=== PATIENT | female | born 1960 | race Caucasian/White ===

== ENCOUNTER 2022-12-20 09:27 | Observation (INO) ==
--- NOTE | 2022-12-20 09:39 | Emergency Department Note ---
HPI General Chief complaint: Nausea/Vomiting/Diarrhea Stated complaint: stomach and back pain Time Seen by Provider: 12/20/22 09:39 Source: patient Mode of arrival: ambulatory History of Present Illness HPI Narrative: Narrative: Patient is a 62-year-old female with a history of hypertension who presents to the emergency department due to abdominal pain. She states that started this morning and has been constant since then. She states that it started after drinking coffee. She states that it is in the right upper part of the abdomen and radiates to the back. She states that it is an achy pain, and denies palliative or provocative factors at this time. She also endorses nausea, vomiting, and diarrhea. She states that the diarrhea is chronic, but the nausea and vomiting are not. She denies any other concerns at this time. Related Data Home Medications Medication Instructions Recorded Confirmed cholestyramine (with sugar) 4 gram 4 g PO BID 03/10/21 12/20/22 oral powder Previous Rx's Medication Instructions Recorded omeprazole 20 mg capsule,delayed 20 mg PO BID stomach upset #180 07/20/22 release caps fluticasone 250 mcg-salmeterol 50 1 inh inhalation Q12H PRN asthma 10/26/22 mcg/dose blistr powdr for #60 ea inhalation (Advair Diskus) hydrochlorothiazide 25 mg tablet 25 mg PO QAM #90 tabs 11/17/22 albuterol sulfate 90 mcg/actuation 1 puff inhalation Q4H PRN 11/25/22 aerosol inhaler (ProAir HFA) shortness of breath #6.7 grams Allergies Allergy/AdvReac Type Severity Reaction Status Date / Time hydrocodone AdvReac Unknown Nausea Verified 09/14/22 11:31 Review of Systems ROS ROS Narrative: Narrative: Constitutional: Denies fever or weakness Eyes: Denies eye pain or vision change ENT ED: Denies throat pain or rhinorrhea Cardiovascular: Denies chest pain, dyspnea on exertion, orthopnea or edema Respiratory: Denies shortness of breath or cough Gastrointestinal: Reports abdominal pain, nausea, vomiting and diarrhea; Denies constipation, hematochezia or melena Musculoskeletal: Denies back pain or myalgia Integumentary: Denies rash or lesions Neurological: Denies headache, weakness, numbness, confusion, abnormal gait or dizziness [facility] Narrative Patient History Narrative: Narrative: Medical/Surgical/Family History All Active Problems (Updated 12/20/22 @ 15:10 by Chris Ulloa MD) Chronic asthma (Acute) Cholelithiasis and cholecystitis without obstruction (Acute) Congestion of upper respiratory tract (Acute) Cough (Acute) HTN (hypertension) (Acute) Medicare annual wellness visit, initial (Acute) Fracture of left wrist (Acute) Fall (Acute) Dysphagia (Chronic) GERD (gastroesophageal reflux disease) (Chronic) Chronic diarrhea (Chronic) Chronic cough (Chronic) Wellness examination (Chronic) Medical History Chronic cough 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 Stewart Rt 2009 left 2006 H/O tubal ligation at 23 years old History of colonoscopy (12/14/16) History of hysteroscopy (08/03/13) Family History Other No pertinent family history Social History Smoking Status: Never smoker Alcohol Intake Frequency: does not drink Substance Use: does not use Exam Narrative Narrative: Narrative: General General appearance: Present alert and in no apparent distress; Absent anxious, appears intoxicated or sleepy Head Head: Present atraumatic and normocephalic Eye Eye: Present PERRL, EOMI and visual vázquez intact; Absent scleral icterus or nystagmus ENT ENT: Present mucous membranes moist; Absent nasal congestion Neck Neck: Present full ROM; Absent tenderness Chest Chest: Present normal inspection and symmetric chest wall rise; Absent tenderness Respiratory Respiratory: Present normal lung sounds bilaterally; Absent respiratory distress or accessory muscle use Cardiovascular Cardiovascular: Present regular rate, normal rhythm and normal heart sounds Adbominal Abdominal: Present soft, tenderness (RUQ), normal bowel sounds and Chavira's si gn; Absent distention, guarding, rebound, rigidity, Rovsing's sign or tenderness at McBurney's Point Extremities Extremities: Present normal inspection and full ROM Back Back: Present normal inspection and full ROM Neurological Neurological: Present alert and oriented X3 Psychiatric Psychiatric: Present normal affect and normal mood Skin Skin: Present warm (WNL), dry and normal color Course Vital Signs Vital signs: Vital Signs Temperature 97.2 F 12/20/22 09:31 Pulse Rate 75 12/20/22 09:31 Respiratory Rate 18 12/20/22 09:31 Blood Pressure 174/88 12/20/22 09:31 Pulse Oximetry (%) 97 12/20/22 09:31 Oxygen Delivery Method Room Air 12/20/22 09:31 Temperature 98.1 F 12/20/22 13:13 Pulse Rate 72 12/20/22 13:13 Respiratory Rate 16 12/20/22 13:13 Blood Pressure 172/86 12/20/22 13:13 Pulse Oximetry (%) 100 12/20/22 13:13 Oxygen Delivery Method Room Air 12/20/22 13:13 MDM MDM Narrative Medical decision making narrative: Narrative: Patient is a 62-year-old female who presents to the emergency department due to abdominal pain. Differential diagnoses include cholecystitis, cholelithiasis, pancreatitis, and gastroenteritis. I did perform a bedside ultrasound which demonstrated thickened gallbladder wall, pericholecystic fluid, and echogenic material in the dependent portion of the gallbladder. For this reason a comprehensive ultrasound was ordered. This demonstrated the same thing, but did demonstrate stones in the gallbladder neck as well. Patient's labs are reassuring overall, but due to concern for cholecystitis I spoke to Dr. Ulloa who agreed to see and admit patient. Lab Data 12/20/22 09:50 Labs: Lab Results 12/20/22 12/20/22 12/20/22 Range/Units 09:50 09:50 09:56 WBC 8.3 (4.5-11.0) K/mcL RBC 5.08 (3.59-5.38) M/mcL Hgb 14.5 (11.2-15.7) g/dL Hct 44.7 (34.1-44.9) % POC Hct 44.0 (36-48) MCV 88.0 (80.0-100.0) fL MCH 28.5 (26.0-34.0) pg MCHC 32.4 (31.0-36.0) g/dL RDW 12.8 (11.5-14.5) % Plt Count 349 (140-440) K/mcL MPV 10.7 (8.8-12.5) fL Immature Gran % (Auto) 0.1 (0.0-0.5) % Neut % (Auto) 69.6 (38.0-78.0) % Lymph % (Auto) 22.6 (15.5-49.0) % Tate % (Auto) 5.0 (1.0-12.0) % Eos % (Auto) 1.9 (0.0-7.0) % Baso % (Auto) 0.8 (0.0-2.0) % Lymph # (Auto) 1.88 (1.50-4.80) K/mcL Tate # (Auto) 0.42 (0.10-0.90) K/mcL Eos # (Auto) 0.16 (0.00-0.70) K/mcL Baso # (Auto) 0.07 (0.00-0.30) K/mcL Immature Gran # 0.01 (0.00-0.05) K/mcl Absolute Neutrophils 5.79 (1.80-8.00) K/mcL POC Sodium 139 (133-145) POC Potassium 4.0 (3.3-5.1) POC Chloride 104 (96-108) POC Total CO2 29.0 (22-30) POC BUN 15 (6-20) POC Creatinine 0.8 (0.6-1.2) POC Glucose 116 H (70-105) POC WB Ioniz Calcium 1.03 L (1.16-1.32) Total Bilirubin 0.4 (0.1-1.0) mg/dL Direct Bilirubin < 0.2 (0-0.3) mg/dL AST 22 (<32) U/L ALT 22 (<40) U/L Alkaline Phosphatase 132 H (39-117) U/L Total Protein 7.0 (5.9-8.4) gm/dL Albumin 4.1 (3.2-5.2) gm/dL Globulin 2.9 (2.2-3.7) gm/dL Lipase 23 (7-60) U/L Urine Color Urine Appearance (Clear) Urine pH (5.0-9.0) Ur Specific Dupo (1.000-1.035) Urine Protein (Negative) mg/dL Urine Glucose (UA) (Negative) mg/dL Urine Ketones (Negative) mg/dL Urine Occult Blood (Negative) gerson/mcL Urine Nitrate (Negative) Urine Bilirubin (Negative) mg/dL Urine Urobilinogen mg/dL Ur Leukocyte Esterase (Negative) /uL Ur Culture Indicated? 12/20/22 Range/Units 12:41 WBC (4.5-11.0) K/mcL RBC (3.59-5.38) M/mcL Hgb (11.2-15.7) g/dL Hct (34.1-44.9) % POC Hct (36-48) MCV (80.0-100.0) fL MCH (26.0-34.0) pg MCHC (31.0-36.0) g/dL RDW (11.5-14.5) % Plt Count (140-440) K/mcL MPV (8.8-12.5) fL Immature Gran % (Auto) (0.0-0.5) % Neut % (Auto) (38.0-78.0) % Lymph % (Auto) (15.5-49.0) % Tate % (Auto) (1.0-12.0) % Eos % (Auto) (0.0-7.0) % Baso % (Auto) (0.0-2.0) % Lymph # (Auto) (1.50-4.80) K/mcL Tate # (Auto) (0.10-0.90) K/mcL Eos # (Auto) (0.00-0.70) K/mcL Baso # (Auto) (0.00-0.30) K/mcL Immature Gran # (0.00-0.05) K/mcl Absolute Neutrophils (1.80-8.00) K/mcL POC Sodium (133-145) POC Potassium (3.3-5.1) POC Chloride (96-108) POC Total CO2 (22-30) POC BUN (6-20) POC Creatinine (0.6-1.2) POC Glucose (70-105) POC WB Ioniz Calcium (1.16-1.32) Total Bilirubin (0.1-1.0) mg/dL Direct Bilirubin (0-0.3) mg/dL AST (<32) U/L ALT (<40) U/L Alkaline Phosphatase (39-117) U/L Total Protein (5.9-8.4) gm/dL Albumin (3.2-5.2) gm/dL Globulin (2.2-3.7) gm/dL Lipase (7-60) U/L Urine Color Lt. yellow Urine Appearance Clear (Clear) Urine pH 8.0 (5.0-9.0) Ur Specific Dupo 1.015 (1.000-1.035) Urine Protein Negative (Negative) mg/dL Urine Glucose (UA) Negative (Negative) mg/dL Urine Ketones 40 A (Negative) mg/dL Urine Occult Blood Negative (Negative) gerson/mcL Urine Nitrate Negative (Negative) Urine Bilirubin Negative (Negative) mg/dL Urine Urobilinogen Normal mg/dL Ur Leukocyte Esterase Negative (Negative) /uL Ur Culture Indicated? No EKG Data EKG #1: EKG attestation: Yes I reviewed and interpreted this EKG. EKG results narrative: Normal sinus rhythm with a rate of 65, normal axis, NM 71, QRS of 83, QTc of 494, appearance of T wave flattening throughout, although this is difficult to interpret due to poor quality EKG, and absence of ST elevation or depression. Discharge Plan Patient/Caregiver Discharge Instructions Pt seen by OVEN OPERATOR/PA only: No Clinical Impression: Cholecystitis Patient Disposition: Xfer As Inpt ([facility]) Discharge Date/Time: 12/20/22 13:11
[2022-12-20 10:02] LABS: POC Calcium, Ionized 1.03 (1.16-1.32); POC Creatinine 0.8 (0.6-1.2)
[2022-12-20] MEDS ORDERED: ONDANSETRON 4 MG/2 ML VIAL IV ONE (10:19)
[2022-12-20 10:20] LABS: Basophils # (Auto) 0.07 K/mcL (0.00-0.30); Basophils % (Auto) 0.8 % (0.0-2.0); Eosinophils # (Auto) 0.16 K/mcL (0.00-0.70); Eosinophils % (Auto) 1.9 % (0.0-7.0); Hematocrit 44.7 % (34.1-44.9); Hemoglobin 14.5 g/dL (11.2-15.7); Lymphocytes # (Auto) 1.88 K/mcL (1.50-4.80); Lymphocytes % (Auto) 22.6 % (15.5-49.0); Mean Corpuscular HGB Conc 32.4 g/dL (31.0-36.0); Mean Platelet Volume 10.7 fL (8.8-12.5); Monocytes # (Auto) 0.42 K/mcL (0.10-0.90); Neutrophils % (Auto) 69.6 % (38.0-78.0); Platelet Count 349 K/mcL (140-440); RBC 5.08 M/mcL (3.59-5.38); Red Cell Distribution Width 12.8 % (11.5-14.5); WBC 8.3 K/mcL (4.5-11.0)
[2022-12-20] MEDS ORDERED: morphine 4 MG/ML VIAL IV ONE (10:39)
[2022-12-20 10:40] LABS: ALT/SGPT 22 U/L (<40); AST/SGOT 22 U/L (<32); Albumin 4.1 gm/dL (3.2-5.2); Alkaline Phosphatase 132 U/L (39-117); Bilirubin,Direct < 0.2 mg/dL (0-0.3); Bilirubin,Total 0.4 mg/dL (0.1-1.0); Globulin 2.9 gm/dL (2.2-3.7)
[2022-12-20] MEDS ORDERED: morphine 2 MG/ML VIAL IV PRN (12:30)
[2022-12-20 13:12] LABS: Appearance,Urine CLEAR (Clear); Bilirubin,Urine NEGATIVE (Negative); Color,Urine LT. YELLOW; Culture Indicated,Urine No; Glucose,Urine (UA) NEGATIVE (Negative); Ketones,Urine 40 mg/dL (Negative); Leukocyte Esterase,Urine NEGATIVE /uL (Negative); Nitrate,Urine NEGATIVE (Negative); Protein,Urine NEGATIVE (Negative); Specific Gravity,Urine 1.015 (1.000-1.035); Urine Blood NEGATIVE ery/mcL (Negative); Urobilinogen,Urine Normal
[2022-12-20] MEDS: 0.9 % SODIUM CHLORIDE 1,000 ML IV SCH (13:42)
[2022-12-20] MEDS: ONDANSETRON 4 MG/2 ML VIAL IV PRN ×2 (13:43→18:11)
[2022-12-20] MEDS ORDERED: PROMETHAZINE 25 MG/ML VIAL IV PRN (15:01)
[2022-12-20] MEDS ORDERED: ALBUTEROL SULFATE 60 PUFF INHALER INH PRN (15:05)
[2022-12-20] MEDS ORDERED: FLUTICASONE/SALMETEROL 250/50 INHALER #14 INH PRN (15:05)
--- NOTE | 2022-12-20 15:11 | General Surg History&Physical ---
HPI History of Present Illness Patient information: Note initiated : 12/20/22 at 3:05 pm Service Date, if different from initiated Date: [] Patient: Екатерина Farooq a 62 y/o F admitted on 12/20/22 for stomach and back pain. Chief Complaint: [] Chief complaint: Acute cholecystitis with cholelithiasis History of present illness: Ms. Farooq is a 62 year old F with onset of epigastric and right upper quadrant pain about 1 AM. This gradually increased in intensity and recurred more severely about 5 AM. This was followed by radiation through to her back with associated nausea and vomiting. She had persistent gagging and was finally seen in the emergency room after 8 AM. On evaluation she was noted to have epigastric and right upper quadrant tenderness. Abdominal ultrasound shows gallstones with stones impacted in the neck of the gallbladder and mild pericholecystic edema. Patient is admitted with cholecystitis with cholelithiasis. She will be treated with antibiotics and will have cholecystectomy in the a.m. Review of Systems All systems: reviewed and no additional remarkable complaints except as stated Respiratory Respiratory: Present wheezing PFSH PFSH All Active Problems (Updated 12/20/22 @ 15:10 by Chris Ulloa MD) Chronic asthma (Acute) Cholelithiasis and cholecystitis without obstruction (Acute) Congestion of upper respiratory tract (Acute) Cough (Acute) HTN (hypertension) (Acute) Medicare annual wellness visit, initial (Acute) Fracture of left wrist (Acute) Fall (Acute) Dysphagia (Chronic) GERD (gastroesophageal reflux disease) (Chronic) Chronic diarrhea (Chronic) Chronic cough (Chronic) Wellness examination (Chronic) Medical History Chronic cough Occupational asthma from working in a gustavo environment at [employer] Patient is on SS disability, no longer working Chronic diarrhea Congestion of upper respiratory tract Cough Dysphagia GERD (gastroesophageal reflux disease) HTN (hypertension) Medicare annual wellness visit, initial [place] neuroma rt , 2009 No pertinent past medical history Wellness examination Surgical History H/O knee surgery Dr. Stewart Rt 2009 left 2006 H/O tubal ligation at 23 years old History of colonoscopy (12/14/16) History of hysteroscopy (08/03/13) Family History Other No pertinent family history Social History smoking status: Never smoker alcohol intake frequency: does not drink substance use type: does not use MEDS/ALLERGIES Home Medications and Allergies Home Medications Medication Instructions Recorded Confirmed Type cholestyramine (with sugar) 4 gram 4 g PO BID 03/10/21 12/20/22 History oral powder omeprazole 20 mg capsule,delayed 20 mg PO BID stomach upset #180 07/20/22 12/20/22 Rx release caps fluticasone 250 mcg-salmeterol 50 1 inh inhalation Q12H PRN asthma 10/26/22 12/20/22 Rx mcg/dose blistr powdr for #60 ea inhalation (Advair Diskus) hydrochlorothiazide 25 mg tablet 25 mg PO QAM #90 tabs 11/17/22 12/20/22 Rx albuterol sulfate 90 mcg/actuation 1 puff inhalation Q4H PRN 11/25/22 12/20/22 Rx aerosol inhaler (ProAir HFA) shortness of breath #6.7 grams Allergies Allergy/AdvReac Type Severity Reaction Status Date / Time hydrocodone AdvReac Unknown Nausea Verified 09/14/22 11:31 Physical Examination Vital Signs Vital signs: Temp Pulse Resp BP Pulse Ox O2 Del Method 98.1 F 72 16 172/86 100 Room Air 12/20/22 13:13 12/20/22 13:13 12/20/22 13:13 12/20/22 13:13 12/20/22 13:13 12/20/22 13:13 General physical appearance General physical exam: well developed, well nourished, no distress and moderate pain Eyes Eye exam: PERRL and normal ocular movement ENT ENT exam: normal mucosa and no congestion Head Head exam IM: Present atraumatic, normal inspection and normocephalic Neck Neck exam: no masses, no bruits, trachea midline, no lymphadenopathy and no venous distension Cardiovascular Cardiovascular exam IM: Present normal rate and rhythm, JVD, RRR, +S1 and +S2; Absent gallop Respiratory Respiratory exam: normal expansion, normal respiratory effort and clear to auscultation Abdomen Abdomen: Present tender (Epigastrium and right upper quadrant) and bowel sounds (present) Integumentary Integumentary: Present no rash, no growths and no abnormal pigmentation Neurologic Neurologic: Present normal coordination and normal sensation Musculoskeletal Musculoskeletal: Present normal gait and normal posture Psychiatric Psychiatric: Present oriented to time, oriented to person, oriented to place, speech is normal and memory intact Results Labs 12/20/22 09:50 Labs: Abnormal lab results 12/20/22 12/20/22 12/20/22 Range/Units 09:50 09:56 12:41 POC Glucose 116 H (70-105) POC WB Ioniz Calcium 1.03 L (1.16-1.32) Alkaline Phosphatase 132 H (39-117) U/L Urine Ketones 40 A (Negative) mg/dL Diabetes panel 12/20/22 Range/Units 09:50 AST 22 (<32) U/L ALT 22 (<40) U/L Alkaline Phosphatase 132 H (39-117) U/L Total Protein 7.0 (5.9-8.4) gm/dL Albumin 4.1 (3.2-5.2) gm/dL Calcium panel 12/20/22 Range/Units 09:50 Albumin 4.1 (3.2-5.2) gm/dL Adrenal panel 12/20/22 Range/Units 09:50 Total Bilirubin 0.4 (0.1-1.0) mg/dL AST 22 (<32) U/L ALT 22 (<40) U/L Alkaline Phosphatase 132 H (39-117) U/L Total Protein 7.0 (5.9-8.4) gm/dL Albumin 4.1 (3.2-5.2) gm/dL All other labs normal. A/P Assessment and plan (1) Cholelithiasis and cholecystitis without obstruction: Status: Acute (2) HTN (hypertension): Status: Acute (3) GERD (gastroesophageal reflux disease): Status: Chronic Qualifiers: Esophagitis presence: without esophagitis Qualified Code(s): K21.9 - Gastro-esophageal reflux disease without esophagitis; K21.9 - Gastro-esophageal reflux disease without esophagitis; K21.9 - Gastro-esophageal reflux disease without esophagitis (4) Chronic diarrhea: Status: Chronic (5) Chronic asthma: Status: Acute Plan Clear liquid diet N.p.o. after midnight Zosyn 3.375 g IV every 6 hours Consent for laparoscopic cholecystectomy to be performed tomorrow Pantoprazole 40 mg every 12 hours IV Baseline chest x-ray Continue inhalers Sepsis Sepsis Identified: No Time Spent With Patient Time: Total time spent is greater than 50% in coordination of care (as documented) at patient's floor/unit and/or counseling patient:
--- NOTE | 2022-12-20 15:45 | XRay Report ---
CLINICAL INFORMATION: Preop COMPARISON: 01/31/2019 TECHNIQUE: Portable FINDINGS: The heart size, mediastinum and pulmonary vessels are unremarkable. Moderate bibasilar atelectasis noted.. There are no effusions. The bones and soft tissues are within normal limits. IMPRESSION: Minor bibasilar atelectasis. Interpreted and Authenticated by: Brady Gold 12/20/22
--- NOTE | 2022-12-20 15:51 | Ultrasound Report ---
CLINICAL INFORMATION: Right upper quadrant pain COMPARISON: None. FINDINGS: Gallbladder wall is moderately thickened (5 mm) there are multiple stones in the gallbladder ranging up to 3 cm. Focal pain is seen over the gallbladder is supportive of cholecystitis. The common bile duct is normal at 4 mm. Liver and pancreas are normal in size and echotexture. No free fluid. IMPRESSION: Cholecystitis Interpreted and Authenticated by: Brady Gold 12/20/22
[2022-12-20] MEDS: HYDROCHLOROTHIAZIDE 25 MG TABLET PO SCH (16:04)
[2022-12-20] MEDS: PIPERACILLIN SODIUM/TAZOBACTAM 3.375 GM in DEXTROSE 5% IN WATER 50 ML IV SCH ×2 (16:05→20:14)
[2022-12-20] MEDS: PANTOPRAZOLE 40 MG VIAL IV SCH (17:10)
[2022-12-20] MEDS: HYDROmorphone 1 MG/ML SYRINGE IV PRN (18:11)
[2022-12-21] MEDS: PIPERACILLIN SODIUM/TAZOBACTAM 3.375 GM in DEXTROSE 5% IN WATER 50 ML IV SCH ×5 (00:08→23:49)
[2022-12-21] MEDS: 0.9 % SODIUM CHLORIDE 1,000 ML IV SCH ×4 (00:08→17:16)
[2022-12-21 06:45] LABS: Basophils # (Auto) 0.06 K/mcL (0.00-0.30); Basophils % (Auto) 0.7 % (0.0-2.0); Eosinophils # (Auto) 0.18 K/mcL (0.00-0.70); Hematocrit 42.3 % (34.1-44.9); Hemoglobin 13.3 g/dL (11.2-15.7); Lymphocytes # (Auto) 1.94 K/mcL (1.50-4.80); Lymphocytes % (Auto) 21.8 % (15.5-49.0); Mean Cell Volume 89.2 fL (80.0-100.0); Mean Corpuscular HGB Conc 31.4 g/dL (31.0-36.0); Mean Platelet Volume 10.7 fL (8.8-12.5); Monocytes % (Auto) 6.7 % (1.0-12.0); Neutrophils % (Auto) 68.6 % (38.0-78.0); Platelet Count 332 K/mcL (140-440); RBC 4.74 M/mcL (3.59-5.38); WBC 8.9 K/mcL (4.5-11.0)
[2022-12-21] MEDS: PANTOPRAZOLE 40 MG VIAL IV SCH ×2 (07:00→16:59)
[2022-12-21 07:15] LABS: ALT/SGPT 22 U/L (<40); AST/SGOT 24 U/L (<32); Albumin 3.7 gm/dL (3.2-5.2); Albumin/Globulin Ratio 1.4 (1.0-2.3); Alkaline Phosphatase 129 U/L (39-117); Bilirubin,Direct < 0.2 mg/dL (0-0.3); Bilirubin,Total 0.7 mg/dL (0.1-1.0); Blood Urea Nitrogen 6 mg/dL (8-23); Calcium 8.4 mg/dL (8.6-10.4); Carbon Dioxide 27 mmol/L (22-30); Chloride 102 mmol/L (96-108); Globulin 2.6 gm/dL (2.2-3.7); Glomerular Filtration Rate 78; Glucose 97 mg/dL (70-105); Lactate Dehydrogenase 186 U/L (135-225); Phosphorous 3.4 mg/dL (2.5-4.5); Triglycerides 133 mg/dL (<150); Uric Acid 3.4 mg/dL (2.5-8.0)
--- NOTE | 2022-12-21 08:04 | EKG ---
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 Measurements Intervals [place] Rate: 65 P: 18 HI: 71 QRS: 21 QRSD: 83 T: 40 QT: 474 QTc: 494 Interpretive Statements Irregular rhythm, atrial fibrillation vs. sinus arrythmia Low voltage, precordial leads Nonspecific T abnormalities, inferior leads Borderline prolonged QT interval Electronically Signed On 12-21-2022 8:04:18 PST by Brady Dsouza M.D. /store/M0/[id number].pdf
[2022-12-21] MEDS: HYDROCHLOROTHIAZIDE 25 MG TABLET PO SCH (08:21)
[2022-12-21] MEDS: HYDROmorphone 1 MG/ML SYRINGE IV PRN ×3 (08:25→23:58)
[2022-12-21] MEDS: ONDANSETRON 4 MG/2 ML VIAL IV PRN ×2 (08:35→19:33)
[2022-12-21] MEDS: POTASSIUM CHLORIDE 40 MEQ in DEXTROSE 5% IN WATER 500 ML IV SCH ×2 (09:06→16:54)
[2022-12-21] MEDS ORDERED: ROCURONIUM 10 MG/ML ML IV ONE (13:02)
[2022-12-21] MEDS ORDERED: PROPOFOL 200 MG/20 ML VIAL IV ONE (13:02)
[2022-12-21] MEDS ORDERED: HYDROmorphone 1 MG/ML SYRINGE ONE (13:02)
[2022-12-21] MEDS ORDERED: ONDANSETRON 4 MG/2 ML VIAL ONE (13:02)
[2022-12-21] MEDS ORDERED: SUGAMMADEX SODIUM 200 MG/2 ML VIAL IV ONE (13:02)
[2022-12-21] MEDS ORDERED: LIDOCAINE HCL/PF 100 MG/5 ML SYRINGE IV ONE (13:02)
[2022-12-21] MEDS ORDERED: DEXAMETHASONE 4 MG/ML VIAL ONE (13:02)
[2022-12-21] MEDS ORDERED: fentaNYL 100 MCG/2 ML VIAL IV ONE (13:02)
[2022-12-21] MEDS ORDERED: NALOXONE HCL 0.4 MG/ML VIAL IV PRN (13:39)
[2022-12-21] MEDS ORDERED: METHOCARBAMOL 1,000 MG/10 ML VIAL IV PRN (13:39)
[2022-12-21] MEDS ORDERED: ACETAMINOPHEN 1,000 MG/100 ML BAG IV ONE (13:39)
[2022-12-21] MEDS ORDERED: IPRATROPIUM/ALBUTEROL 3 ML AMPUL.NEB NEB PRN (13:39)
[2022-12-21] MEDS ORDERED: PROMETHAZINE 25 MG/ML VIAL IV PRN (13:39)
[2022-12-21] MEDS ORDERED: LABETALOL 5 MG/ML ML IV PRN (13:39)
[2022-12-21] MEDS ORDERED: HYDROmorphone 0.5 MG/0.5 ML SYRINGE IV PRN (13:39)
[2022-12-21] MEDS ORDERED: LACTATED RINGERS 1,000 ML IV SCH (13:45)
--- NOTE | 2022-12-21 13:49 | Brief Operative Note ---
Brief Operative Note Date of procedure: 12/21/22 Pre-op diagnosis: cholelithiasis with cholecystitis Post-op diagnosis: other (cholelithiasis with cholecystitis) Procedure: laparoscopic cholecystectomy Grafts/Implants: No Anesthesia: GETA Findings: acute inflammation of gallbladder with gallstones Complications: none Surgeon: Chris Ulloa Estimated blood loss (cc): 10 Specimens Removed/Pathology: other (gallbladder) Condition: stable Disposition: PACU
[2022-12-21] MEDS: fentaNYL 100 MCG/2 ML VIAL IV PRN ×4 (14:09→14:25)
[2022-12-21] MEDS: 0.9 % SODIUM CHLORIDE 10 ML SYRINGE IV SCH ×2 (15:15→22:00)
[2022-12-22] MEDS: HYDROmorphone 1 MG/ML SYRINGE IV PRN (04:14)
[2022-12-22] MEDS: PIPERACILLIN SODIUM/TAZOBACTAM 3.375 GM in DEXTROSE 5% IN WATER 50 ML IV SCH ×2 (06:26→13:15)
[2022-12-22] MEDS: 0.9 % SODIUM CHLORIDE 10 ML SYRINGE IV SCH ×2 (06:27→13:24)
[2022-12-22 07:26] LABS: Basophils # (Auto) 0.02 K/mcL (0.00-0.30); Basophils % (Auto) 0.2 % (0.0-2.0); Eosinophils # (Auto) 0 K/mcL (0.00-0.70); Eosinophils % (Auto) 0 % (0.0-7.0); Hematocrit 39.7 % (34.1-44.9); Hemoglobin 12.4 g/dL (11.2-15.7); Lymphocytes # (Auto) 1.45 K/mcL (1.50-4.80); Lymphocytes % (Auto) 14.8 % (15.5-49.0); Mean Cell Volume 90.8 fL (80.0-100.0); Mean Corpuscular HGB Conc 31.2 g/dL (31.0-36.0); Mean Platelet Volume 10.7 fL (8.8-12.5); Monocytes # (Auto) 0.43 K/mcL (0.10-0.90); Monocytes % (Auto) 4.4 % (1.0-12.0); Neutrophils % (Auto) 80.3 % (38.0-78.0); Platelet Count 337 K/mcL (140-440); RBC 4.37 M/mcL (3.59-5.38); WBC 9.8 K/mcL (4.5-11.0)
--- NOTE | 2022-12-22 07:59 | Operative Note ---
DATE OF OPERATION: 12/20/2022 DATE OF PROCEDURE: 12/20/2022 PREOPERATIVE DIAGNOSIS: Cholelithiasis with cholecystitis. POSTOPERATIVE DIAGNOSIS: Cholelithiasis with cholecystitis. PROCEDURE: Laparoscopic cholecystectomy. SURGEON: Chris Ulloa M.D. FINDINGS: Acute inflammation of gallbladder with gallstones. DESCRIPTION OF PROCEDURE: Under general anesthesia, the patient's abdomen was prepped and draped in a sterile field. Supraumbilical incision was made. Veress needle was inserted uneventfully. Abdomen was insufflated with 2.5 liters of CO2. A 12 mm port was placed uneventfully. Laparoscope was placed. Under videoscopic guidance, a 12 mm port and two 5 mm ports were placed in the right subcostal region. The gallbladder was decompressed because it was acutely inflamed and tightly dilated. The bile was totally clear, compatible with a chronic obstruction. The gallbladder was then repositioned. Cystic duct was dissected and followed back to the gallbladder. Cystic artery was dissected and followed onto the wall of the gallbladder. Cystic duct was clipped with 5 clips and divided. Cystic artery was clipped with four clips and divided. The gallbladder was then from the hepatic bed using blunt dissection. Cautery was not needed. The bed had slight oozing, so this was controlled with electrocautery. Irrigation was carried out. The gallbladder was placed in an Endopouch and retrieved. Inspection of the bed revealed no further bleeding. There was no bile leak. CO2 was allowed to escape from the abdomen and the ports were removed. The fascia at the umbilicus was closed with interrupted 0 Vicryl. Skin incisions were closed with manjula. The patient tolerated the procedure well. Tegaderm dressings were placed. She was awakened, transferred to a bed, and taken to the postanesthetic care unit in satisfactory condition. LCS:billy Job ID: [id number] Doc ID: [id number] Chris Ulloa M.D.
[2022-12-22] MEDS: HYDROCHLOROTHIAZIDE 25 MG TABLET PO SCH (08:00)
[2022-12-22] MEDS: 0.9 % SODIUM CHLORIDE 1,000 ML IV SCH ×2 (08:00→15:32)
[2022-12-22] MEDS: PANTOPRAZOLE 40 MG VIAL IV SCH (08:08)
[2022-12-22 08:16] LABS: ALT/SGPT 47 U/L (<40); AST/SGOT 55 U/L (<32); Albumin 3.5 gm/dL (3.2-5.2); Albumin/Globulin Ratio 1.3 (1.0-2.3); Alkaline Phosphatase 142 U/L (39-117); Bilirubin,Direct < 0.2 mg/dL (0-0.3); Bilirubin,Total 0.5 mg/dL (0.1-1.0); Blood Urea Nitrogen 6 mg/dL (8-23); Calcium 8.4 mg/dL (8.6-10.4); Carbon Dioxide 27 mmol/L (22-30); Chloride 102 mmol/L (96-108); Globulin 2.7 gm/dL (2.2-3.7); Glomerular Filtration Rate 91; Glucose 107 mg/dL (70-105); Lactate Dehydrogenase 219 U/L (135-225); Phosphorous 3.6 mg/dL (2.5-4.5); Triglycerides 104 mg/dL (<150); Uric Acid 2.6 mg/dL (2.5-8.0)
[2022-12-22] MEDS: oxyCODONE/APAP 5/325MG TABLET PO PRN ×2 (10:44→15:07)
--- NOTE | 2022-12-22 14:28 | Discharge Summary ---
Discharge Provider Provider IMPORTANT FOLLOW-UP INFORMATION FOR PCP: Patient information: Note initiated : 12/22/22 at 2:23 pm Service Date, if different from initiated Date: [] Patient: Екатерина Farooq 62 y/o F admitted on 12/20/22 for stomach and back pain. Chief Complaint: [] Date of admission: 12/20/22 13:08 Discharge date: 12/22/22 Primary care physician: Marita Lui DO Admitting clinician: Chris Ulloa Attending physician on admission: Chris Ulloa Consults: 12/20/22 12:28 Consult to Physician [CONS] Stat Comment: Consulting Provider: Chris Ulloa Reason For Exam: Physician to Consult Attending physician on discharge: Chris Ulloa Discharging clinician: Chris Ulloa COURSE Hospital Course Hospital course: 62-year-old female admitted on 20 December with complaint of epigastric and right upper quadrant pain of 4 days duration. She had associated nausea with vomiting. When seen in the emergency room she had epigastric and right upper quadrant tenderness. Ultrasound revealed edematous gallbladder with stones in the neck. Liver panel were normal. Patient had laparoscopic cholecystectomy on yesterday. She had acute cholecystitis and cholelithiasis. Her surgery proceeded unremarkably. She is tolerating diet and has no discomfort. She is ready for discharge home. Discharge diagnosis: Cholelithiasis with cholecystitis Secondary discharge diagnosis: Chronic asthma Hypertension GERD Reason for admission: Acute cholecystitis with cholelithiasis Procedures: Laparoscopic cholecystectomy 21 December 2022 Pertinent studies/significant findings: None Time Spent with Patient Time attestation: Total time spent providing and/or coordinating discharge services: Time spent: Less than 30 minutes Physical Examination Vital Signs Vital signs: Temp Pulse Resp BP Pulse Ox O2 Del Method O2 Flow Rate 98.2 F 73 20 119/72 95 Room Air 2 12/22/22 12:00 12/22/22 12:00 12/22/22 12:00 12/22/22 12:12/22/22 12:12/22/22 12:12/21/22 15:16 General physical appearance General physical exam: well developed, well nourished and no distress Eyes Eye exam: PERRL and normal ocular movement ENT ENT exam: normal mucosa and no congestion Head Head exam IM: Present atraumatic, normal inspection and normocephalic Neck Neck exam: no masses, no bruits, trachea midline, no lymphadenopathy and no venous distension Cardiovascular Cardiovascular exam IM: Present normal rate and rhythm, RRR, +S1 and +S2; Absent JVD Respiratory Respiratory exam: normal expansion, normal respiratory effort and clear to auscultation Abdomen Abdomen: Present soft and tender (Mild tenderness around port sites) Integumentary Integumentary: Present no rash, no growths and no abnormal pigmentation Neurologic Neurologic: Present normal coordination and normal sensation Musculoskeletal Musculoskeletal: Present normal gait and normal posture Psychiatric Psychiatric: Present oriented to time, oriented to person, oriented to place, speech is normal and memory intact Discharge Plan Patient/Caregiver Discharge Instructions Activity: increase activity as tolerated Diet: Regular Diet and Low Fat Prescriptions: New oxycodone-acetaminophen [Endocet] 10-325 mg tablet 1 tab PO Q4H PRN (Reason: Pain) Qty: 30 0RF oxycodone-acetaminophen [Endocet] 10-325 mg tablet 1 tab PO Q4H PRN (Reason: Pain) Qty: 30 0RF No Action omeprazole 20 mg capsule,delayed release(DR/EC) 20 mg PO BID Qty: 180 1RF Rx Instructions: swallow whole; do not crush, chew, dissolve, or cut/break hydrochlorothiazide 25 mg tablet 25 mg PO QAM Qty: 90 0RF albuterol sulfate [ProAir HFA] 90 mcg/actuation HFA aerosol inhaler 1 puff INHALATION Q4H PRN (Reason: shortness of breath) Qty: 6.7 0RF fluticasone propion-salmeterol [Advair Diskus] 250-50 mcg/dose blister with device 1 inh INHALATION Q12H PRN (Reason: asthma) Qty: 60 1RF cholestyramine (with sugar) 4 gram powder 4 g PO BID Prescription drug monitoring program results: PDMP not reviewed Follow Up Plan Follow up with: Marita Lui DO [Primary Care Provider] - Patient Disposition: Home, Self-Care Plan of Treatment: coronary Prognosis: Good Rehab Potential: Good I certify that the patient requires SNF services: No Overall status at discharge: patient is progressing back to baseline Discharge Orders: Discharge Order (Routine); Ordered 12/22/22 Ordered By: Chris Ulloa Pending Pending Pending: Resuscitation Status Resuscitate (Full Code) Diet Regular Diet Start WedDec 22 799 Hydrochlorothiazide (Hydrochlorothiazide 25 Mg Tablet) 25 mg PO DAILY [facility] Last Admin: 12/22/22 08:00 Dose: 25 mg Documented By: Admin: 12/21/22 08:21 Dose: Not Given Documented By: Admin: 12/20/22 16:04 Dose: 25 mg Documented By: LEVAR Hydromorphone HCl (Hydromorphone 1 Mg/Ml Syringe) 1 mg IV Q2HP PRN; Protocol PRN Reason: Per Pain Protocol Last Admin: 12/22/22 04:14 Dose: 1 mg Documented By: Admin: 12/21/22 23:58 Dose: 1 mg Documented By: Admin: 12/21/22 19:33 Dose: 1 mg Documented By: Admin: 12/21/22 08:25 Dose: 1 mg Documented By: Admin: 12/20/22 18:11 Dose: 1 mg Documented By: LEVAR Sodium Chloride (Sodium Chloride 0.9%) 1,000 mls @ 100 mls/hr IV .Q10H [facility] Last Admin: 12/22/22 08:00 Dose: 100 mls/hr Documented By: Infusion: 12/22/22 01:09 Dose: 100 mls/hr Documented By: Admin: 12/21/22 17:16 Dose: Not Given Documented By: Admin: 12/21/22 15:09 Dose: 100 mls/hr Documented By: Infusion: 12/21/22 10:08 Dose: 100 mls/hr Documented By: Admin: 12/21/22 07:58 Dose: Not Given Documented By: Admin: 12/21/22 00:08 Dose: 100 mls/hr Documented By: Infusion: 12/20/22 23:42 Dose: 100 mls/hr Documented By: Admin: 12/20/22 13:42 Dose: 100 mls/hr Documented By: LEVAR Piperacillin Sod/Tazobactam (Sod 3.375 gm/ Dextrose) 50 mls @ 100 mls/hr IV Q6H [facility]; Protocol Last Admin: 12/22/22 13:15 Dose: 1,000 mls/hr Documented By: [email or web address] Infusion: 12/22/22 07:10 Dose: 0 mls/hr Documented By: Admin: 12/22/22 06:26 Dose: 100 mls/hr Documented By: Infusion: 12/22/22 00:19 Dose: 100 mls/hr Documented By: Admin: 12/21/22 23:49 Dose: 100 mls/hr Documented By: Infusion: 12/21/22 17:48 Dose: 0 mls/hr Documented By: Admin: 12/21/22 16:55 Dose: 100 mls/hr Documented By: Infusion: 12/21/22 12:20 Dose: 0 mls/hr Documented By: Admin: 12/21/22 11:46 Dose: 100 mls/hr Documented By: Infusion: 12/21/22 06:45 Dose: 0 mls/hr Documented By: Admin: 12/21/22 06:11 Dose: 100 mls/hr Documented By: Infusion: 12/21/22 00:38 Dose: 100 mls/hr Documented By: Admin: 12/21/22 00:08 Dose: 100 mls/hr Documented By: Infusion: 12/20/22 20:44 Dose: 100 mls/hr Documented By: Admin: 12/20/22 20:14 Dose: 100 mls/hr Documented By: Infusion: 12/20/22 16:38 Dose: 0 mls/hr Documented By: Admin: 12/20/22 16:05 Dose: 100 mls/hr Documented By: LEVAR Ondansetron HCl (Ondansetron 4 Mg/2 Ml Vial) 4 mg IV Q4HP PRN; Protocol PRN Reason: Nausea And Vomiting Last Admin: 12/21/22 19:33 Dose: 4 mg Documented By: Admin: 12/21/22 08:35 Dose: 4 mg Documented By: Admin: 12/20/22 18:11 Dose: 4 mg Documented By: Admin: 12/20/22 13:43 Dose: 4 mg Documented By: LEVAR Oxycodone/Acetaminophen (Oxycodone/Apap 5/325mg Tablet) 1 tab PO Q4HP PRN; Protocol PRN Reason: Per Pain Protocol Last Admin: 12/22/22 10:44 Dose: 1 tab Documented By: THANH Pantoprazole Sodium (Pantoprazole 40 Mg Vial) 40 mg IV BIDAC [facility] Last Admin: 12/22/22 08:08 Dose: 40 mg Documented By: Admin: 12/21/22 16:59 Dose: 40 mg Documented By: Admin: 12/21/22 07:00 Dose: 40 mg Documented By: Admin: 12/20/22 17:10 Dose: 40 mg Documented By: LEVAR Promethazine HCl (Promethazine 25 Mg/Ml Vial) 12.5 mg IV Q4HP PRN; Protocol PRN Reason: Nausea/Vomiting Last Admin: 12/20/22 20:34 Dose: 12.5 mg Documented By: PRINCESS Sodium Chloride (0.9 % Sodium Chloride 10 Ml Syringe) 10 ml IV Q8 [facility] Last Admin: 12/22/22 13:24 Dose: Not Given Documented By: [email or web address] Admin: 12/22/22 06:27 Dose: Not Given Documented By: Admin: 12/21/22 22:00 Dose: Not Given Documented By: Admin: 12/21/22 15:15 Dose: Not Given Documented By: BROWN Shift Summary 12/22/22 04:50 Shift Summary by Marybeth Garcias Admitted 12/20 for cholecystitis. Had cholecystectomy 12/21. HX: GERD, HTN Abdominal sites X4 w/manjula & tegaderm. Scant amount of blood on each one. Getting dilaudid for pain control. If med is given slowly, she does not have nausea & won't need zofran. Received K-rider last evening for K+ of 3.1 Up w/SBA to BR; voiding well. Hopefully will d/c home today. Initialized on 12/22/22 04:50 - END OF NOTE
== END 2022-12-22 16:20 | disposition home or self-care (01) ==
LOC: ED 09:27 → MEDSUR 09:27
PROVIDERS: ADMIT Family Medicine Adult Medicine; ATTEND Family Medicine Adult Medicine